=== PATIENT | female | born 1995 | race Caucasian/White ===

== ENCOUNTER → 2018-10-01 | Day surgery (SDC) | payer OTHER ==
[~2018-10-01] MED LIST: LIDOCAINE 1% INJ-PF (10 MG/ML) 30 ML SDV ONE
== END ==
LOC: WI 09:32
PROVIDERS: ATTEND Physician Assistant
DX: N63.10 Unspecified lump in the right breast, unspecified quadrant (principal)
CPT/HCPCS: 88305 ×2; 19083; 77065; J3490

== ENCOUNTER → 2018-12-07 | Outpatient (CLI) | payer OTHER | LOC: OD 11:44 | PROVIDERS: ATTEND Thoracic Surgery (Cardiothoracic Vascular Surgery) | DX: C73 Malignant neoplasm of thyroid gland (principal) | CPT/HCPCS: 36415; 82310 ==